=== PATIENT | female | born 1995 | race African-American/Black ===

== ENCOUNTER 2021-07-04 10:54 | Emergency (ER) | payer MEDICAID, OTHER ==
[~2021-07-04] VITALS: Ht 170.2 cm; Wt 98.6 kg
[2021-07-04 14:54] LABS: RSV AMPLIFICATION NEGATIVE (NEGATIVE)
[2021-07-04] MEDS ORDERED: ALBUTEROL 90 MCG/ACT 8GM HFA INHALER INH ONE (17:30)
[2021-07-04 17:59] LABS: BASO # 0.1 10^3/uL (0.0-0.2); BASO % 0.4 % (0.0-1.0); EOS % 0.3 % (0.0-3.0); HEMATOCRIT 41.9 % (36.0-47.0); HEMOGLOBIN 13.8 g/dl (12.0-15.5); LYMPH # 2.3 10^3/uL (1.5-5.0); LYMPH % 14.3 % (24.0-44.0); MEAN CORPUSCULAR HEMOGLOBIN 29.3 pg (27.0-33.0); MEAN CORPUSCULAR HGB CONC 32.9 g/dl (32.0-36.5); MONO # 0.6 10^3/uL (0.0-0.8); MONO % 3.8 % (2.0-8.0); NEUTROPHILS # 12.7 10^3/uL (1.5-8.5); NEUTROPHILS % 80.8 % (36.0-66.0); PLATELET COUNT, AUTOMATED 355 10^3/uL (150-450); RED BLOOD COUNT 4.71 10^6/uL (4.00-5.40); WHITE BLOOD COUNT 15.7 10^3/uL (4.0-10.0)
[2021-07-04 18:17] LABS: ALBUMIN 4.4 GM/DL (3.2-5.2); ALT/SGPT 30 U/L (12-78); BILIRUBIN,DIRECT < 0.1 MG/DL (0.0-0.2); BILIRUBIN,TOTAL 0.4 MG/DL (0.2-1.0); C REACTIVE PROTEIN QUANTITATIV < 0.30 MG/DL (0.00-0.30); TOTAL PROTEIN 8.2 GM/DL (6.4-8.2)
[2021-07-04 18:22] LABS: ERYTHROCYTE SEDIMENTATION RATE 19 mm/hr (0-20)
--- NOTE | 2021-07-04 19:13 | ECGEPIP ---
[facility] - ED Test Date: 2021-07-04 Pat Name: ESTHELA MORSE Department: Room: - Gender: Female [employer] Service Technician: DOMI : 1995 Requested By: HIREN SCALES PA-C Order Number: [id number] Reading MD: Kemar García Measurements Intervals [place] Rate: 82 P: 64 TN: 148 QRS: 75 QRSD: 76 T: 65 QT: 342 QTc: 399 Interpretive Statements Normal sinus rhythm NO PRIORS FOR COMPARISON Electronically Signed on 07-04-2021 19:13:19 EDT by Kemar García
[2021-07-04] MEDS ORDERED: KETOROLAC TROMETHAMINE 10 MG TAB PO ONE (20:35)
[2021-07-04] MEDS ORDERED: IBUP80TA PO (21:11)
[2021-07-04] MEDS ORDERED: AMOX500T PO (21:11)
[2021-07-04] MEDS ORDERED: VENTAER INH (21:11)
[2021-07-04 21:43] VITALS: BP 138/82
--- NOTE | 2021-07-16 10:44 | REP ---
INDICATION: sob/cp. COMPARISON: None. FINDINGS: The superior mediastinal structures are midline. The cardiac silhouette is unremarkable in size, shape, and position. The diaphragmatic surfaces of the lungs are regular, and the costophrenic angles are clear. The pulmonary hui are clear. The imaged osseous structures are intact. IMPRESSION: There is no acute cardiopulmonary disease. <Electronically signed by Diego Valdez > 07/16/21 0240
== END 2021-07-04 21:44 | disposition home or self-care (01) ==
LOC: M ED 10:54
DX: J20.9 Acute bronchitis, unspecified (principal); Z20.822 Contact with and (suspected) exposure to COVID-19; J45.909 Unspecified asthma, uncomplicated; R56.9 Unspecified convulsions; K21.9 Gastro-esophageal reflux disease without esophagitis

== ENCOUNTER 2022-01-01 22:08 | Emergency (ER) | payer OTHER ==
[~2022-01-01] VITALS: Ht 170.2 cm; Wt 97.6 kg
[~2022-01-01 22:08] MED LIST: AMOX500T PO; IBUP80TA PO; VENTAER INH
[2022-01-01 22:09] VITALS: BP 135/78
[2022-01-01] MEDS ORDERED: KETOROLAC 30 MG/ML 1ML VIAL IV ONE (22:35)
[2022-01-01] MEDS ORDERED: NS 1,000 ML IV ONE (22:35)
[2022-01-01 22:52] LABS: BASO # 0.1 10^3/uL (0.0-0.2); BASO % 0.5 % (0.0-1.0); EOS # 0.1 10^3/uL (0.0-0.5); EOS % 0.9 % (0.0-3.0); HEMATOCRIT 36.3 % (36.0-47.0); HEMOGLOBIN 11.8 g/dl (12.0-15.5); LYMPH # 3.2 10^3/uL (1.5-5.0); LYMPH % 27.4 % (24.0-44.0); MEAN CORPUSCULAR HEMOGLOBIN 29.7 pg (27.0-33.0); MEAN CORPUSCULAR HGB CONC 32.5 g/dl (32.0-36.5); MEAN CORPUSCULAR VOLUME 91.4 fl (80.0-96.0); MONO # 0.7 10^3/uL (0.0-0.8); MONO % 5.9 % (2.0-8.0); NEUTROPHILS # 7.6 10^3/uL (1.5-8.5); PLATELET COUNT, AUTOMATED 304 10^3/uL (150-450); RED BLOOD COUNT 3.97 10^6/uL (4.00-5.40); WHITE BLOOD COUNT 11.6 10^3/uL (4.0-10.0)
[2022-01-01] MEDS ORDERED: ISOVUE-370 76% 100ML VIAL As Ordered ONE (23:05)
[2022-01-01 23:32] LABS: ALBUMIN 3.9 GM/DL (3.2-5.2); ALT/SGPT 23 U/L (12-78); BILIRUBIN,DIRECT < 0.1 MG/DL (0.0-0.2); BILIRUBIN,TOTAL 0.1 MG/DL (0.2-1.0); LIPASE 100 U/L (73-393); TOTAL PROTEIN 7.5 GM/DL (6.4-8.2)
[2022-01-02] MEDS ORDERED: AMOX875T2 PO (01:01)
== END 2022-01-02 01:21 | disposition home or self-care (01) ==
LOC: M ED 22:08
DX: K51.90 Ulcerative colitis, unspecified, without complications (principal); R10.31 Right lower quadrant pain; K21.9 Gastro-esophageal reflux disease without esophagitis; G40.509 Epileptic seizures related to external causes, not intractable, without status epilepticus; Z79.899 Other long term (current) drug therapy
CPT/HCPCS: 74177; 80047; 80076; 83690; 84702; 85025; 96374; 99283; J1885; Q9967

== ENCOUNTER 2022-01-15 14:03 | Emergency (ER) | payer OTHER ==
[~2022-01-15] VITALS: Ht 170.2 cm; Wt 96.8 kg
[~2022-01-15 14:03] MED LIST changes: +AMOX875T2 PO
[2022-01-15] MEDS ORDERED: LIDOCAINE W/EPINEPHRINE 1% 20ML VIAL SC ONE (16:35)
[2022-01-15 17:57] VITALS: BP 113/62
== END 2022-01-15 17:58 | disposition home or self-care (01) ==
LOC: M ED 14:03
DX: L02.212 Cutaneous abscess of back [any part, except buttock and flank] (principal); K21.9 Gastro-esophageal reflux disease without esophagitis; G40.509 Epileptic seizures related to external causes, not intractable, without status epilepticus; Z79.899 Other long term (current) drug therapy

== ENCOUNTER 2022-02-22 13:25 | Emergency (ER) | payer OTHER ==
[~2022-02-22] VITALS: Ht 170.2 cm; Wt 96.0 kg
[2022-02-22 14:22] LABS: BASO % 0.3 % (0.0-1.0); EOS % 0.5 % (0.0-3.0); HEMATOCRIT 34.6 % (36.0-47.0); HEMOGLOBIN 11.5 g/dl (12.0-15.5); LYMPH # 1.8 10^3/uL (1.5-5.0); LYMPH % 23.1 % (24.0-44.0); MEAN CORPUSCULAR HEMOGLOBIN 29.8 pg (27.0-33.0); MEAN CORPUSCULAR HGB CONC 33.2 g/dl (32.0-36.5); MEAN CORPUSCULAR VOLUME 89.6 fl (80.0-96.0); MONO # 0.5 10^3/uL (0.0-0.8); MONO % 6.4 % (2.0-8.0); NEUTROPHILS # 5.5 10^3/uL (1.5-8.5); NEUTROPHILS % 69.4 % (36.0-66.0); PLATELET COUNT, AUTOMATED 315 10^3/uL (150-450); RED BLOOD COUNT 3.86 10^6/uL (4.00-5.40)
[2022-02-22 14:49] LABS: BLOOD UREA NITROGEN 5 MG/DL (7-18); CALCIUM LEVEL 9.6 MG/DL (8.5-10.1); CARBON DIOXIDE LEVEL 23 MEQ/L (21-32); CHLORIDE LEVEL 110 MEQ/L (98-107); CREATININE FOR GFR 0.78 MG/DL (0.55-1.30); GLOMERULAR FILTRATION RATE > 60.0 (>60); GLUCOSE, FASTING 80 MG/DL (70-100); SODIUM LEVEL 140 MEQ/L (136-145)
[2022-02-22 16:17] VITALS: BP 142/82
== END 2022-02-22 16:21 | disposition home or self-care (01) ==
LOC: M ED 13:25
DX: N92.6 Irregular menstruation, unspecified (principal); F12.20 Cannabis dependence, uncomplicated

== ENCOUNTER → 2022-08-27 | Outpatient (REF) | payer OTHER | LOC: M WUC 16:26 | PROVIDERS: ATTEND Physician Assistant | DX: J06.9 Acute upper respiratory infection, unspecified (principal); R05.9 Cough, unspecified; Z20.828 Contact with and (suspected) exposure to other viral communicable diseases ==

== ENCOUNTER 2022-12-10 13:17 | Emergency (ER) | payer OTHER ==
[~2022-12-10] VITALS: Ht 170.2 cm; Wt 82.4 kg
[2022-12-10 13:18] VITALS: BP 130/64
[2022-12-10] MEDS ORDERED: LIDO5DIS41 TOP ×2 (15:58→16:21)
[2022-12-10] MEDS ORDERED: CEPACOL LOZENGE MT STA (15:58)
[2022-12-10] MEDS ORDERED: BENZ1LOZ9 PO ×2 (15:58→16:21)
== END 2022-12-10 16:08 | disposition home or self-care (01) ==
LOC: M ED 13:17
DX: J06.9 Acute upper respiratory infection, unspecified (principal); J02.9 Acute pharyngitis, unspecified; G40.89 Other seizures; K21.9 Gastro-esophageal reflux disease without esophagitis; F17.200 Nicotine dependence, unspecified, uncomplicated; F12.10 Cannabis abuse, uncomplicated; Z79.52 Long term (current) use of systemic steroids; Z79.899 Other long term (current) drug therapy

== ENCOUNTER 2023-01-29 11:25 | Emergency (ER) | payer OTHER ==
[~2023-01-29] VITALS: Ht 170.2 cm; Wt 84.0 kg
[~2023-01-29 11:25] MED LIST changes: +BENZ1LOZ9 PO; +LIDO5DIS41 TOP
[2023-01-29] MEDS ORDERED: AMOX875T2 PO (14:12)
[2023-01-29] MEDS ORDERED: IBUP-1022 PO (14:12)
[2023-01-29 14:37] VITALS: BP 138/86
== END 2023-01-29 14:40 | disposition home or self-care (01) ==
LOC: M ED 11:25
DX: K04.7 Periapical abscess without sinus (principal); R07.89 Other chest pain; Z79.899 Other long term (current) drug therapy

== ENCOUNTER 2024-02-16 21:30 | Emergency (ER) | payer OTHER ==
[~2024-02-16] VITALS: Ht 170.2 cm; Wt 83.1 kg
[~2024-02-16 21:30] MED LIST changes: +IBUP-1022 PO; +NAPR-837 PO
[2024-02-17] VITALS: BP 106/58; TEMP 97.8; O2SAT 100
== END 2024-02-17 00:02 | disposition home or self-care (01) ==
LOC: M ED 21:30
DX: Z48.02 Encounter for removal of sutures (principal)

== ENCOUNTER 2025-02-07 07:21 | Day surgery (SDC) | payer OTHER ==
[~2025-02-07] VITALS: Ht 170.2 cm; Wt 79.5 kg
[2025-02-07] MEDS: LR 1,000 ML IV SCH (08:21)
[2025-02-07] MEDS ORDERED: propofoL 200 MG/20 ML VIAL As Ordered ONE (09:08)
[2025-02-07] MEDS ORDERED: ONDANSETRON 4MG 2ML VIAL As Ordered ONE (09:08)
[2025-02-07] MEDS ORDERED: LIDOCAINE 2% 100MG/5ML SDV (FOR ANES.) As Ordered ONE (09:08)
[2025-02-07] MEDS ORDERED: SUGAMMADEX SODIUM 500 MG/5 ML VIAL (BRIDION) As Ordered ONE (09:08)
[2025-02-07] MEDS ORDERED: ROCURONIUM BROMIDE 50MG/5ML VIAL As Ordered ONE (09:08)
[2025-02-07] MEDS ORDERED: MIDAZOLAM INJ 2MG/2ML VIAL As Ordered ONE (09:13)
[2025-02-07] MEDS ORDERED: fentaNYL 100 MCG/2 ML INJECTION As Ordered ONE (09:13)
[2025-02-07] MEDS: AMPICILLIN SOD/SULBACTAM SOD 3 GM in D5W MINI-BAG 100 ML IV ONE (10:14)
[2025-02-07] MEDS: OXYMETAZOLINE 0.05% NASAL SPRAY As Ordered ONE (10:14)
[2025-02-07] MEDS ORDERED: ACETAMINOPHEN 1000MG/100ML IV BAG As Ordered ONE (10:16)
[2025-02-07] MEDS: CHLORHEXIDINE GLUCONATE 0.12 % 15ML UDC (PERIDEX ORAL RINSE) As Ordered ONE (10:24)
[2025-02-07] MEDS: LIDOCAINE 2% W/ EPINEPHRINE 1.7 ML DENTAL INJ As Ordered ONE (10:30)
[2025-02-07] MEDS ORDERED: fentaNYL 100 MCG/2 ML INJECTION IV PRN (10:55)
[2025-02-07] MEDS ORDERED: LR 1,000 ML IV SCH (10:55)
[2025-02-07] MEDS: oxyCODONE 5MG TAB PO PRN (11:17)
[2025-02-07] MEDS: HYDROMORPHONE HCL 0.5 MG/ 0.5 ML SYRINGE IV PRN (11:17)
[2025-02-07] MEDS: ONDANSETRON 4MG 2ML VIAL IV PRN (11:17)
[2025-02-07] MEDS: NORCO, ANEXSIA 5/325MG TABLET (HYDROcodone/ACETAMINOPHEN) PO PRN (12:14)
[2025-02-07 12:54] VITALS: BP 107/70; TEMP 97.3; O2SAT 99
== END 2025-02-07 12:58 | disposition home or self-care (01) ==
LOC: M SDC 07:21
PROVIDERS: ATTEND Dentist
DX: K02.9 Dental caries, unspecified (principal); D69.3 Immune thrombocytopenic purpura; F41.9 Anxiety disorder, unspecified; F32.A Depression, unspecified; F43.10 Post-traumatic stress disorder, unspecified; J45.909 Unspecified asthma, uncomplicated; F17.200 Nicotine dependence, unspecified, uncomplicated
CPT/HCPCS: 88300; D7210; D9223; J0131; J0295; J1100; J1171; J2250; J2405; J3010

== ENCOUNTER → 2025-05-24 | Outpatient (REF) | payer OTHER ==
[~2025-05-24] MED LIST changes: +LIDO1ADH93 TOP; -LIDO5DIS41 TOP
[2025-05-24 18:53] LABS: ALT/SGPT 13 U/L (7.0-40); AST/SGOT 15 U/L (<34); CALCIUM LEVEL 8.6 MG/DL (8.5-10.1); CARBON DIOXIDE LEVEL 24 MMOL/L (20-31); CHLORIDE LEVEL 107 MMOL/L (98-107); CHOLESTEROL LEVEL 170 MG/DL (<200); CHOLESTEROL RISK RATIO 2.57 (<5); CREATININE FOR GFR 0.72 MG/DL (0.55-1.30); GLOMERULAR FILTRATION RATE > 90.0 (>60); IRON (FE) 42 UG/DL (50-170); LDL CHOLESTEROL 98.0 MG/DL (<100); NON-HDL-C 104.0 MG/DL; PERCENT SATURATION 12.8 % (13.2-45.0); POTASSIUM SERUM 4.4 MMOL/L (3.5-5.1); SODIUM LEVEL 141 MMOL/L (136-145); TRIGLYCERIDES LEVEL 30 MG/DL (<150)
[2025-05-24 18:57] LABS: TOTAL 25(OH) VITAMIN D 28.2 NG/ML (20.0-100.0); VITAMIN B12 LEVEL 555 PG/ML (211-911)
[2025-05-24 19:01] LABS: BASO # 0.0 10^3/uL (0.0-0.2); BASO % 0.6 % (0.0-1.0); EOS # 0.1 10^3/uL (0.0-0.5); EOS % 1.7 % (0.0-3.0); LYMPH # 1.4 10^3/uL (1.5-5.0); LYMPH % 22.3 % (24.0-44.0); MONO # 0.4 10^3/uL (0.0-0.8); MONO % 6.0 % (2.0-8.0); NEUTROPHILS # 4.5 10^3/uL (1.5-8.5); NEUTROPHILS % 69.1 % (36.0-66.0); PLATELET COUNT, AUTOMATED 271 10^3/uL (150-450)
== END ==
LOC: M LAB REF 18:07
PROVIDERS: ATTEND Nurse Practitioner Family
DX: Z13.220 Encounter for screening for lipoid disorders (principal); L65.9 Nonscarring hair loss, unspecified

== ENCOUNTER → 2025-07-20 | Outpatient (REF) | payer OTHER ==
[~2025-07-20] MED LIST changes: -IBUP-1022 PO; +IBUP600T42 PO
[2025-07-20 13:54] LABS: FREE T4 1.13 NG/DL (0.89-1.76)
[2025-07-20 13:55] LABS: THYROID PEROXIDASE ANTIBODY < 28.0 U/ML (<60.0)
[2025-07-20 14:13] LABS: THYROGLOBULIN ANTIBODY 26.0 U/ML (<60.0)
== END ==
LOC: M LAB REF 12:16
PROVIDERS: ATTEND Nurse Practitioner Family
DX: R94.6 Abnormal results of thyroid function studies (principal)

== ENCOUNTER → 2025-07-31 | Outpatient (CLI) | payer OTHER ==
[2025-07-31 16:16] LABS: FREE T4 1.08 NG/DL (0.89-1.76); TOTAL T3 95.6 NG/DL (60.0-181.0)
== END ==
LOC: M PLALAB 14:27
PROVIDERS: ATTEND Nurse Practitioner Family
DX: R94.6 Abnormal results of thyroid function studies (principal)

== ENCOUNTER → 2025-09-07 | Outpatient (CLI) | payer OTHER ==
[2025-09-08 15:53] LABS: ALMOND IGE FOOD < 0.10 kU/L (<0.10); BRAZIL NUT CLASS IGE <0.10 ABSENT (<0.10); BRAZIL NUT IGE < 0.10 kU/L (<0.10); CASHEW NUT IGE FOOD < 0.10 kU/L (<0.10); CODFISH IGE FOOD < 0.10 kU/L (<0.10); COWS MILK FOOD < 0.10 kU/L (<0.10); EGG WHITE FOOD < 0.1 kU/L (<0.10); HAZELNUT IGE FOOD < 0.10 kU/L (<0.10); MACADAMIA NUT CLASS IGE <0.10 ABSENT (<0.10); PEANUT IGE FOOD < 0.10 kU/L (<0.10); SALMON IGE FOOD < 0.10 kU/L (<0.10); SCALLOP IGE FOOD < 0.10 kU/L (<0.10); SESAME SEED IGE FOOD < 0.10 kU/L (<0.10); SHRIMP IGE FOOD < 0.10 kU/L (<0.10); SOYBEAN IGE FOOD < 0.10 kU/L (<0.10); TUNA IGE FOOD < 0.10 kU/L (<0.10); WALNUT IGE FOOD < 0.10 kU/L (<0.10); WHEAT IGE FOOD < 0.10 kU/L (<0.10)
[2025-09-16 14:48] LABS: IMMUNOGLOBULIN A CELIAC 315 mg/dL (47-310); t-TRANSGLUTAMINASE(tTG) IgA < 1.0 U/mL (<15.0); t-TRANSGLUTAMINASE(tTG) IgG < 1.0 U/mL (<15.0)
== END ==
LOC: M WUC 09:24
PROVIDERS: ATTEND Nurse Practitioner Family
DX: K90.49 Malabsorption due to intolerance, not elsewhere classified (principal)